=== PATIENT | male | born 2000 | race Caucasian/White ===

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

== ENCOUNTER 2024-09-10 21:22 | Emergency (ER) | payer OTHER ==
[~2024-09-10] VITALS: Ht 193 cm; Wt 151.1 kg
[2024-09-10 21:28] VITALS: BP 145/90
[2024-09-10] MEDS ORDERED: IBUP600 PO (22:25)
[2024-09-10] MEDS ORDERED: ACET500 PO (22:25)
== END 2024-09-10 23:08 | disposition home or self-care (01) ==
LOC: ER 21:22
DX: M25.561 Pain in right knee (principal); X50.1XXA Overexertion from prolonged static or awkward postures, initial encounter
CPT/HCPCS: 73562-RT; 99283-25; A9270